=== PATIENT | female | born 1960 ===

== ENCOUNTER 2024-01-24 05:09 | Inpatient (IN) ==
[2024-01-24] MEDS: oxyCODONE 10 MG TAB.ER.12H PO SCH (06:39)
[2024-01-24] MEDS: CELECOXIB 200 MG CAPSULE PO SCH (06:40)
[2024-01-24] MEDS: PREGABALIN 75 MG CAPSULE PO SCH (06:40)
[2024-01-24] MEDS ORDERED: KETAMINE 50 MG/ML Syringe IV ONE (07:01)
[2024-01-24] MEDS: ceFAZolin 2 GM in DEXTROSE 5% IN WATER 50 ML IV SCH (07:23)
[2024-01-24] MEDS ORDERED: MEPERIDINE 25 MG/ML VIAL IV PRN (08:49)
[2024-01-24] MEDS ORDERED: ONDANSETRON 4 MG/2 ML VIAL IV PRN ×2 (08:49→09:41)
[2024-01-24] MEDS ORDERED: BENZOCAINE/MENTHOL 1 LOZENGE PO PRN (08:49)
[2024-01-24] MEDS ORDERED: IPRATROPIUM/ALBUTEROL 3 ML AMPUL.NEB NEB PRN (08:49)
[2024-01-24] MEDS ORDERED: SUGAMMADEX SODIUM 200 MG/2 ML VIAL IV ONE (08:54)
[2024-01-24] MEDS ORDERED: ROCURONIUM 10 MG/ML ML IV ONE (08:54)
[2024-01-24] MEDS ORDERED: TRANEXAMIC ACID 1,000 MG/10 ML VIAL ONE (08:54)
[2024-01-24] MEDS ORDERED: LIDOCAINE 2% PF 5 ML VIAL ONE (08:54)
[2024-01-24] MEDS ORDERED: ONDANSETRON 4 MG/2 ML VIAL ONE (08:54)
[2024-01-24] MEDS ORDERED: DEXAMETHASONE 10 MG/ML VIAL ONE (08:54)
[2024-01-24] MEDS ORDERED: ePHEDrine 50 MG/ML AMPUL IV ONE ×2 (08:54→09:19)
[2024-01-24] MEDS ORDERED: PHENYLephrine 1 MG/10 ML SYRINGE (ANEST) ONE (08:54)
[2024-01-24] MEDS ORDERED: GLYCOPYRROLATE 0.2 MG/ML VIAL IV ONE (08:54)
[2024-01-24] MEDS ORDERED: ROPIVACAINE HCL/PF 30 ML VIAL IJ ONE (08:55)
[2024-01-24] MEDS ORDERED: PROPOFOL 200 MG/20 ML VIAL IV ONE (08:55)
[2024-01-24] MEDS ORDERED: MAGNESIUM SULFATE 2 GM/50 ML BAG IV ONE (08:56)
[2024-01-24] MEDS ORDERED: diphenhydrAMINE 50 MG/ML VIAL ONE (09:26)
[2024-01-24] MEDS ORDERED: methylPREDNISolone SOD SUCC 125 MG/2 ML VIAL ONE (09:26)
[2024-01-24] MEDS ORDERED: morphine 4 MG/ML VIAL IV PRN (09:41)
[2024-01-24] MEDS: TRANEXAMIC ACID 1,000 MG/10 ML VIAL IV ONE (10:11)
[2024-01-24] MEDS: KETOROLAC 15 MG/ML VIAL IV PRN (10:52)
[2024-01-24] MEDS: HYDROcodone/APAP 10/325MG TABLET PO PRN (14:29)
[2024-01-24] MEDS: 0.9 % SODIUM CHLORIDE 10 ML SYRINGE IV SCH (14:43)
[2024-01-24] MEDS ORDERED: ceFAZolin 1 GM VIAL IV SCH (15:00)
== END 2024-01-24 14:52 | disposition home or self-care (01) | DRG 483 ==
LOC: MEDSUR 05:09
PROVIDERS: ADMIT Orthopaedic Surgery; ATTEND Orthopaedic Surgery